=== PATIENT | male | born 1950 | race Caucasian/White ===

== ENCOUNTER → 2025-05-17 | Outpatient (CLI) | payer MEDICARE, OTHER, SELFPAY ==
--- NOTE | 2025-05-17 11:03 | MRI_ITS ---
EXAM: PELVIS W/WO CONTRAST 05/17/2025 CLINICAL HISTORY: PROSTATE CANCER. Elevated PSA. TECHNIQUE: Procedure Code: [id number] Modality: MR Procedure: PELVIS W/WO CONTRAST Multiplanar and multisequence images were obtained without and with intravenous gadolinium contrast. CONTRAST: Clariscan VOLUME: 17 mL COMPARISON: MRI of the prostate dated 01/20/2025 FINDINGS: Image quality:Diagnostic PSA:6.14ng/mL Prostate size: 4.5 by 2.7 x 3.5cms Prostate volume: mL PSA density: ng/mL??? Prostate Posterior port to the prostate, there is a T2 hyperintense fluid collection measuring 5.5 by 10 x 3.5 cm suspicious for post biopsy seroma/hematoma. T1 hyperintense blood products are noted extending into the left seminal vesicle. Transition zone: PI-RADS 2 findings. No suspicious lesion *T2 score: 2; mostly encapsulated nodule or a homogeneous circumscribed nodule without encapsulation, or a homogeneous mildly hypointense area between nodules. *DWI score: 1; no abnormality on ADC or high b-value DWI. *DCE: Negative. *Overall PI-RADS: PI-RADS 2. *Extracapsular extension:No gross extracapsular extension. Peripheral Zone: Background changes of likely prostatitis (PI-RADS 2). *Lesion 1: Stable 12 x 10 x 12 mm lesion in the left posterolateral peripheral zone midgland (image 13 axial T2 weighted sequences). The lesion is abutting the capsule a proximally 1.5 cm. *T2 score: 4; circumscribed, homogeneous, moderate hypointensity, and <1.5 cm. *DWI score: 4; focal, marked hypointensity on ADC and marked hyperintensity on high b-value DWI; <1.5 cm. *DCE: Positive. *Overall PI-RADS: PI-RADS 4. *Extracapsular extension:The lesion abuts the capsule but does not demonstrate any extra capsular extension. Neurovascular bundles: Unremarkable. Seminal vesicles: Unremarkable. Bladder: Underdistended and suboptimally evaluated, grossly unremarkable. Lymph nodes: Unremarkable. Bones: No destructive or frankly suspicious bony lesions identified on nondedicated evaluation. Other: None. MRI/Pelvis W/WO Contrast IMPRESSION: 12 mm lesion in the left posterior peripheral zone midgland stable since previo us exam. PI-RADS 4: high (clinically significant cancer is likely to be present) Fluid collection posterior to the prostate likely reflective of postoperative s eroma. Reading Location: [id number]
== END | disposition home or self-care (01) ==
LOC: OPMRI 11:01
PROVIDERS: PCP Internal Medicine; Referring Provider Student in an Organized Health Care Education/Training Program; Visit Provider Student in an Organized Health Care Education/Training Program
DX: C61 Malignant neoplasm of prostate (principal)
CPT/HCPCS: 72197; A9575; A4216